=== PATIENT | male | born 1965 | race Two or more races ===

== ENCOUNTER 2024-07-20 22:14 | Emergency (ER) | payer MEDICAID, SELFPAY ==
[2024-07-20 22:43] VITALS: BP 157/89; PULSE 87; RESP 20; TEMP 36.8; O2SAT 99
--- NOTE | 2024-07-20 22:59 | PD.EDRME ---
Rapid Medical Screening Exam RME Arrival date/time: 07/20/24 22:14 59 year old c/o of urinary frequency and back pain. I have greeted and performed a focused initial assessment of this patient. A comprehensive ED assessment and evaluation of the patient, analysis of all test results, and completion of the medical decision making process will be conducted by additional ED providers. Chief Complaint: Urogenital-Male Time Seen by Provider: 07/20/24 22:17 Vital signs: Vital Signs Temperature 98.3 F 07/20/24 22:43 Pulse Rate 87 07/20/24 22:43 Respiratory Rate 20 07/20/24 22:43 Blood Pressure 157/89 H 07/20/24 22:43 Pulse Oximetry (%) 99 07/20/24 22:43 Oxygen Delivery Method Room Air 07/20/24 22:43
[2024-07-20 23:05] LABS: Collection Type, Urine Voided; Squamous Epithelial Cell,Urine 0 /hpf (0-5)
[2024-07-20 23:08] LABS: Basophils # (Auto) 0.1 Thou/mm3 (0.0-0.2); Basophils % (Auto) 0 % (0-2.5); Eosinophils # (Auto) 0.1 Thou/mm3 (0.0-0.5); Eosinophils % (Auto) 0 % (0-10); Hematocrit 44.5 % (41.0-53.0); Hemoglobin 15.3 g/dL (13.5-16.0); Immature Granulocytes % (Auto) 0 % (0-0); Immature Granulocytes Auto 0.08 Thou/mm3 (0.00-0.00); Lymphocytes # (Auto) 3.1 Thou/mm3 (1.0-4.8); Lymphocytes % (Auto) 16 % (10-50); Mean Corpuscular HGB Conc 34.4 g/dl (31.0-37.0); Mean Corpuscular Hemoglobin 30.5 pg (25.0-35.0); Mean Corpuscular Volume 89 fL (80-100); Monocytes # (Auto) 1.3 Thou/mm3 (0.0-0.8); Monocytes % (Auto) 6 % (0-12); Neutrophils # (Auto) 15.5 Thou/mm3 (1.8-7.7); Neutrophils % (Auto) 77 % (37-80); Nucleated Red Blood Cell % 0 /100 WBC (0); Platelet Count 208 Thou/mm3 (140-440); RDW Standard Deviation 41.4 fL (35.1-43.9); Red Blood Count 5.01 Miln/mm3 (4.50-5.90); White Blood Count 20.1 Thou/mm3 (3.8-10.6)
[2024-07-20 23:15] LABS: Bilirubin,Urine Negative (Negative); Blood,Urine 3+ (Negative); Glucose, Urine 4+ (Negative); Ketones,Urine Trace (Negative); Leukocyte Esterase,Urine Positive (Negative); Nitrite,Urine Negative (Negative); Protein,Urine 2+ (Neg - Trace); RBC,Urine 1708 /hpf (0-3); Specific Gravity,Urine 1.023 (1.001-1.035); Urobilinogen,Urine Negative mg/dL (0.0-1.0); WBC,Urine 1573 /hpf (0-5)
[2024-07-20 23:16] LABS: Clarity,Urine Turbid (Clear/Hazy); Color,Urine Yellow (Lt Yel-Yel)
[2024-07-20 23:28] LABS: Alanine Aminotransferase 20 U/L (10-49); Albumin, Serum 4.9 gm/dL (3.5-5.0); Albumin/Globulin Ratio 1.8 (1.2-2.2); Alkaline Phosphatase 69 U/L (46-116); Anion Gap 6 (7-16); Aspartate Amino Transferase 11 U/L (0-34); BUN/Creatinine Ratio 12 Ratio (12-20); Bilirubin,Total 0.4 mg/dL (0.3-1.2); Blood Urea Nitrogen 12 mg/dL (9-23); Calcium 9.7 mg/dL (8.3-10.6); Calcium (Corrected) 9.7 mg/dL (8.5-10.1); Carbon Dioxide 28.6 mMol/L (20.0-31.0); Chloride 103 mMol/L (98-107); Globulin 2.7 gm/dL (2.3-3.5); Glucose 227 mg/dL (74-106); Osmolality,Calculated 282 (275-295); Potassium 3.8 mMol/L (3.4-5.1); Sodium 138 mMol/L (136-145); Total Protein 7.6 gm/dL (5.7-8.2); eGFR > 60 See Note
[2024-07-20 23:40] LABS: Lactate (Lactic Acid) 1.1 mMol/L (0.4-2.0)
[2024-07-21] VITALS: BP 157/94; PULSE 78; RESP 18; TEMP 36.7; O2SAT 97
[2024-07-21 00:06] LABS: Procalcitonin 0.11 ng/ml (0.0-0.49)
[2024-07-21] MEDS: SODIUM CHLORIDE 0.9% 1000 ML 1,000 ML 999 ML IV (00:13)
--- NOTE | 2024-07-21 00:28 | EDNOTE_ITS ---
ED Male Genitalurinary RME/HPI General Chief complaint: Urogenital-Male Stated complaint: FREQUENT URINATION, MIGHT HAVE INFECTION Time Seen by Provider: 07/20/24 22:17 Source: patient Arrival date/time: 07/20/24 22:14 Mode of arrival: ambulatory Limitations: no limitations RME / HPI RME / HPI Narrative: 07/20/24 22:14 59 year old c/o of urinary frequency and back pain. I have greeted and performed a focused initial assessment of this patient. A comprehensive ED assessment and evaluation of the patient, analysis of all test results, and completion of the medical decision making process will be conducted by additional ED providers. Dr. Gotti?s Main ED Evaluation: This is a 59-year-old male presenting to the emergency department with complaints of urinary retention. The patient reports increased urinary frequency and urgency but minimal output. Additionally, he notes associated constipation. He mentions that he has experienced similar symptoms in the past, though he is unable to recall when. The patient was previously advised to use a catheter but declined, opting instead for a course of antibiotics, which led to symptom resolution. He attempted to see his PCP for further evaluation but was unable to secure an appointment, prompting him to seek care in the emergency department. The patient denies any known allergies. He reports a history of a gastric hernia. Related Data Home Medications ?Medication ?Instructions ?Recorded ?Confirmed paroxetine HCl 20 mg tablet (Paxil) 40 mg PO QAM #0 tabs 04/13/14 01/23/20 amoxicillin 500 mg capsule 500 mg PO BID 01/23/20 01/23/20 atorvastatin 20 mg tablet 20 mg PO QPM 01/23/20 01/23/20 cholecalciferol (vitamin D3) 25 25 mcg PO QDAY 01/23/20 01/23/20 mcg (1,000 unit) tablet (Vitamin D3) losartan 50 mg tablet (Cozaar) 50 mg PO BID 01/23/20 01/23/20 metformin 850 mg tablet 850 mg PO TID 01/23/20 01/23/20 omega 4-oyr-xrv-fish oil 1,000 mg 1 cap PO QDAY 01/23/20 01/23/20 (120 mg-180 mg) capsule (Fish Oil) pantoprazole 40 mg tablet,delayed 40 mg PO QDAY 01/23/20 01/23/20 release Previous Rx's ?Medication ?Instructions ?Recorded cefdinir 300 mg capsule 300 mg PO BID #14 caps 07/21/24 Allergies Allergy/AdvReac Type Severity Reaction Status Date / Time No Known Allergies Allergy Verified 07/20/24 22:14 Review of Systems Review of Systems Systems Reviewed: All systems reviewed, normal except as documented Past Medical History Past Medical History NEUROLOGIC: Negative Neurological Disorders or Seizures CARDIAC: Positive Cardiac Disorders, Hypercholesterolemia and Hypertension; Negative Congestive Heart Failure RESPIRATORY: Negative Chronic Obstructive Pulmonary Disease (COPD) or Asthma GASTROINTESTINAL: Positive Gastrointestinal Disorders, Hiatal Hernia and Gastroesophageal Reflux Disease GENITOURINARY: Positive Genitourinary Disorders and Benign Prostatic Hyperplasia; Negative Renal Disease MUSCULOSKELETAL: Negative Musculoskeletal Disorders ENDOCRINE: Positive Endocrine Disorders and Diabetes Mellitus Type 2; Negative Diabetes Mellitus Type 1 HEMATOLOGIC: Negative Blood Disorders or Sickle Cell Disease PSYCHO/SOCIAL: Positive Anxiety OTHER HISTORY: Negative Blood Transfusions, Chicken Pox, Measles, Mumps, Rubella ([place] Measles) or Cancer Family History FAMILY HISTORY: Positive Family Cardiac Disorders (both parents-HTN) Social History SMOKING STATUS: Current every day smoker ED Exam Narrative Physical exam: GENERAL APPEARANCE: AxOx4, generally well-appearing, no acute distress. HEENT: NC, AT. MMM. EOMI, clear conjunctiva, oropharynx clear. NECK: Supple without lymphadenopathy. No stiffness or restricted ROM. HEART: Normal rate and regular rhythm, normal S1/S1, no m/r/g LUNGS: CTAB, moving air well. No crackles or wheezes are heard. ABDOMEN: Soft, nontender, nondistended with good bowel sounds heard. BACK: No midline C/T/L spine pain or deformity, No CVAT, no obvious deformity. EXTREMITIES: Without cyanosis, clubbing or edema. MUSCULOSKELETAL: FROM of all major joints, no chest tenderness. NEUROLOGICAL: Grossly nonfocal. Alert and oriented, moving all 4 extremities. CN not formally tested but appear grossly intact. Observed to ambulate with normal gait. Skin: Warm and dry without any rash. General Limitations: Present no limitations Course Quality Measures none Orders Category Date Time Status CT Screening NOW Care 07/20/24 23:18 Completed IV [Insert IV] STAT Care 07/20/24 23:18 Completed Blood Culture (Lab) Stat Lab 07/20/24 23:28 Received CBC Stat Lab 07/20/24 22:59 Completed CMP [Comprehensive Metabolic Panel] Stat Lab 07/20/24 22:59 Completed Lactic Acid [Lactate (Lactic Acid)] Stat Lab 07/20/24 23:26 Completed Procalcitonin Stat Lab 07/20/24 23:26 Completed UA [Urinalysis] Stat Lab 07/20/24 22:56 Completed Urine Culture Stat Lab 07/20/24 22:56 Received Piper/Tazo Inj [Zosyn Inj] 3.375 gm Med 07/20/24 23:19 Discontinued Sodium Chloride 0.9% (P) [Ns 0.9% (P)] 50 ml IV X1 Sodium Chloride 0.9% 1000 ml [Ns] 1,000 ml Med 07/20/24 23:18 Discontinued IV 999 mls/hr Vital Signs Vital signs: Vital Signs Temperature 98.3 F 07/20/24 22:43 Pulse Rate 87 07/20/24 22:43 Respiratory Rate 20 07/20/24 22:43 Blood Pressure 157/89 H 07/20/24 22:43 Pulse Oximetry (%) 99 07/20/24 22:43 Oxygen Delivery Method Room Air 07/20/24 22:43 Oxygen saturation 99% on room air, patient is not hypoxic Urogenital - Male MDM Narrative MDM Narrative:: Mr. Gordillo is a clinically well-appearing gentleman who presents to the emergency department with subjective symptoms consistent with a UTI. He does not appear to have symptoms of pyelonephritis without flank pain or nausea or vomiting. Exam is otherwise benign and vital signs are stable. Laboratory testing was sent via the E process which significant for a leukocytosis at 20,000 and and initial urinalysis suggestive of UTI. Given he is also symptomatic, has a histo ry of diabetes, we will initiate antibiotic treatment. Is clinically well- appearing and is appropriate for outpatient treatment with oral antibiotics. He does possibly have some mild bacteremia with white count 20,000 we will err towards longer treatment for 7 days. I have spoken with the patient and discussed today?s findings, in addition to providing specific details for the plan of care. Questions are answered and there is an agreement with the plan. Re-assessment at the time of disposition demonstrates that the patient is in no acute distress. The patient has remained stable throughout the entire ED visit and is without objective evidence for acute process requiring urgent intervention or hospitalization. The patient is stable for discharge; counseling is provided and documented as above, discussed symptomatic treatment and specific conditions for return. Scribe Attestation: I, Radha Leggett, am scribing for and in the presence of Dr. Gotti. Provider Notation: Although this document has been carefully reviewed, there may still be some phonetic and other typographical errors. These errors are purely grammatical due to imperfections in the software program and should not be construed in any way to compromise the substance of the patient's medical care during this visit. Patient data External records reviewed:: [facility] previous records Clinical information provided by:: patient Social determinants that could affect healthcare access:: none Patient has the following chronic illnesses:: Refer to [facility] How is presenting disease/condition affected by chronic disease/condition?: no chronic disease Evaluation data The following diagnostics were reviewed and interpreted by me:: lab results Lab and/or radiology exams considered but not ordered:: None Interpretation Summary: See narrative Medications / Prescriptions Medications or Prescriptions considered but not ordered:: None Medication administrations:: Medication Administration History Discontinued Medications Sodium Chloride (Ns) 1,000 mls @ 999 mls/hr IV .Q1H1M ONE Stop: 07/21/24 00:18 Last Infusion: 07/21/24 02:05 Dose: Infused Documented By: Admin: 07/21/24 00:13 Dose: 999 mls/hr Documented By: EF Piperacillin Sod/Tazobactam (Sod 3.375 gm/ Sodium Chloride) 50 mls @ 100 mls/hr IV X1 ONE Stop: 07/20/24 23:48 Last Admin: 07/21/24 00:14 Dose: Not Given Documented By: RC Non-Admin Reason: Cancelled by Provider As above Consultations Consultation(s) initiated? (list below): No Diagnosis Urogenital Male Differential Diagnosis: other (cystitis, pyelonephritis , UTI, prostatitis) Most likely diagnosis given after review of the tests above:: Urinary tract infection Admission Indicated Admission indicated?: not indicated Admission Request Was there a request for admission?: No Disposition Plan Disposition Plan: Discharge Discharge Attestation Discharge Attestation: The patient and all family members were given an opportunity to ask questions and understood the discharge instructions. Discharge instructions specifically effects, indications for sooner follow up or return to the emergency department, and the expected course of current diagnosis. Patient condition: Stable Discharge Plan Plan Patient Disposition: HOME (Self Care) Prescriptions/Referrals Prescriptions/Med Rec: New cefdinir 300 mg capsule 300 mg PO BID Qty: 14 0RF No Action paroxetine HCl [Paxil] 20 MG tablet 40 mg PO QAM Qty: 0 losartan [Cozaar] 50 mg Tablet 50 mg PO BID amoxicillin 500 mg Capsule 500 mg PO BID atorvastatin 20 mg Tablet 20 mg PO QPM metformin 850 mg Tablet 850 mg PO TID pantoprazole 40 mg Tablet,Delayed Release (Dr/Ec) 40 mg PO QDAY cholecalciferol (vitamin D3) [Vitamin D3] 25 mcg (1,000 unit) Tablet 25 mcg PO QDAY omega 5-cgn-ziy-fish oil [Fish Oil] 1,000 mg (120 mg-180 mg) Capsule 1 cap PO QDAY Referrals: Baldo Gallagher MD [Primary Care Provider] - In 1 week Problem List Clinical Impression: Urinary tract infection Patient/Caregiver Discharge Instructions Education Materials: ED Bladder Infection, Male (Adult) Additional Instructions: Titus un seguimiento con marrero m?dico de atenci?n primaria en 3 a 5 d?as para volver a controlarlo. Puede regresar al departamento de emergencias antes si los s?ntomas empeoran o si nota alg?n problema nuevo y preocupante. Print Language: French Stand Alone Forms: Mery Award Info., Patient Portal Info Letter
[2024-07-21 02:06] VITALS: BP 110/76; PULSE 78; RESP 16; TEMP 37.8; O2SAT 98
== END 2024-07-21 02:17 | disposition home or self-care (01) ==
PROVIDERS: Physician Assistant; Emergency Provider Emergency Medicine; PCP Family Medicine
DX: N39.0 Urinary tract infection, site not specified (principal); K59.00 Constipation, unspecified
CPT/HCPCS: 36415; 80053; 81001; 83605; 84145; 85025; 87040; 87077; 87086; 87186; 96360; 96361; 99285; J7030

== ENCOUNTER 2024-08-01 18:55 | Emergency (ER) | payer MEDICAID, SELFPAY ==
[2024-08-01 19:27] VITALS: BP 113/74; PULSE 108; RESP 18; TEMP 36.6; O2SAT 97; BMI 23.8
--- NOTE | 2024-08-01 19:36 | XR_ITS ---
Examination: CT abdomen and pelvis without contrast. Coronal 3-D reconstructions. Sagittal 2-D reconstructions. Date and time of exam:August 01, 20242004 hours INDICATIONS: Left-sided flank pain beginning one week ago CTDI: vol (mGy): 6.39 DLP: (mGycm): 338 Technique: Axial images of the abdomen have been obtained, 3 mm slice thickness Intravenous contrast material has not been administered. Low dose protocols were performed. One or more of the following dose reduction techniques were used; automated exposure control, adjustment of the mA and/or KV according to patient size, use of iterative reconstruction technique. Findings: Focal areas of airspace destruction in the lower lung zones No intrahepatic biliary tract dilatation Contracted gallbladder Spleen is not enlarged No pancreatic or adrenal mass No renal or ureteral calculi, no hydronephrosis Aorta normal size Normal appendix No bowel obstruction No diverticulitis Contracted urinary bladder with wall thickening Transverse posterior dimension 4.5 cm The osseous structures are intact IMPRESSION: No renal or ureteral calculi, no hydronephrosis Normal appendix No bladder mass or bladder calculi
--- NOTE | 2024-08-01 19:37 | PD.EDRME ---
Rapid Medical Screening Exam [facility] Arrival date/time: 08/01/24 18:55 59M with history of DM and HTN presents to ED with continued dysuria/hematuria and now flank pain. Patient was here recently for this and was discharged with Cefdinir. Patient's UC showed caldwell-sensitive E-coli. Chief Complaint: Urogenital-Male Vital signs: Vital Signs Temperature 97.8 F 08/01/24 19:27 Pulse Rate 108 H 08/01/24 19:27 Respiratory Rate 18 08/01/24 19:27 Blood Pressure 113/74 08/01/24 19:27 Pulse Oximetry (%) 97 08/01/24 19:27 Oxygen Delivery Method Room Air 08/01/24 19:27
[2024-08-01 19:54] LABS: Basophils # (Auto) 0.1 Thou/mm3 (0.0-0.2); Basophils % (Auto) 0 % (0-2.5); Eosinophils % (Auto) 0 % (0-10); Hematocrit 40.5 % (41.0-53.0); Immature Granulocytes % (Auto) 1 % (0-0); Immature Granulocytes Auto 0.11 Thou/mm3 (0.00-0.00); Lymphocytes # (Auto) 2.4 Thou/mm3 (1.0-4.8); Lymphocytes % (Auto) 10 % (10-50); Mean Corpuscular HGB Conc 34.6 g/dl (31.0-37.0); Mean Corpuscular Hemoglobin 30.7 pg (25.0-35.0); Mean Corpuscular Volume 89 fL (80-100); Monocytes # (Auto) 1.2 Thou/mm3 (0.0-0.8); Monocytes % (Auto) 5 % (0-12); Neutrophils # (Auto) 19.8 Thou/mm3 (1.8-7.7); Neutrophils % (Auto) 84 % (37-80); Nucleated Red Blood Cell % 0 /100 WBC (0); Platelet Count 292 Thou/mm3 (140-440); RDW Standard Deviation 42.3 fL (35.1-43.9); Red Blood Count 4.56 Miln/mm3 (4.50-5.90); White Blood Count 23.6 Thou/mm3 (3.8-10.6)
[2024-08-01 20:06] LABS: Collection Type, Urine Clean Catch
[2024-08-01 20:18] LABS: Alanine Aminotransferase 15 U/L (10-49); Albumin, Serum 4.7 gm/dL (3.5-5.0); Albumin/Globulin Ratio 1.6 (1.2-2.2); Alkaline Phosphatase 58 U/L (46-116); Anion Gap 8 (7-16); Aspartate Amino Transferase 14 U/L (0-34); BUN/Creatinine Ratio 13 Ratio (12-20); Bilirubin,Total 0.5 mg/dL (0.3-1.2); Blood Urea Nitrogen 12 mg/dL (9-23); Calcium 9.4 mg/dL (8.3-10.6); Calcium (Corrected) 9.4 mg/dL (8.5-10.1); Carbon Dioxide 26.2 mMol/L (20.0-31.0); Chloride 102 mMol/L (98-107); Creatinine (Component) 0.9 mg/dL (0.6-1.3); Estimated Creatinine Clearance 81.7 mL/min (>60); Globulin 2.9 gm/dL (2.3-3.5); Glucose 166 mg/dL (74-106); Lipase 32 U/L (12-53); Osmolality,Calculated 275 (275-295); Potassium 3.7 mMol/L (3.4-5.1); Sodium 136 mMol/L (136-145); Total Protein 7.6 gm/dL (5.7-8.2); eGFR > 60 See Note
[2024-08-01 20:26] LABS: Bilirubin,Urine Negative (Negative); Blood,Urine 1+ (Negative); Clarity,Urine Turbid (Clear/Hazy); Color,Urine Yellow (Lt Yel-Yel); Glucose, Urine Negative (Negative); Ketones,Urine Trace (Negative); Leukocyte Esterase,Urine Positive (Negative); Nitrite,Urine Negative (Negative); Protein,Urine 1+ (Neg - Trace); RBC,Urine 22 /hpf (0-3); Specific Gravity,Urine 1.028 (1.001-1.035); Squamous Epithelial Cell,Urine 1 /hpf (0-5); WBC,Urine 406 /hpf (0-5)
--- NOTE | 2024-08-01 21:14 | PD.EDMALE ---
ED Male Genitalurinary RME/HPI General Chief complaint: Urogenital-Male Stated complaint: UTI SYMPTOMS X 1W WITH LEFT FLANK PAIN Time Seen by Provider: 08/01/24 21:06 Arrival date/time: 08/01/24 18:55 RME / HPI RME / HPI Narrative: 59M with history of DM and HTN presents to ED with continued dysuria/hematuria and now flank pain. Patient was here recently for this and was discharged with Cefdinir. Patient's UC showed caldwell-sensitive E-coli. Patient continue to have symptoms of dysuria. Associated with frequency. Also complained of constipation. Denies any other complaints no medications taken prior to arrival. Related Data Home Medications ?Medication ?Instructions ?Recorded ?Confirmed paroxetine HCl 20 mg tablet (Paxil) 40 mg PO QAM #0 tabs 04/13/14 01/23/20 amoxicillin 500 mg capsule 500 mg PO BID 01/23/20 01/23/20 atorvastatin 20 mg tablet 20 mg PO QPM 01/23/20 01/23/20 cholecalciferol (vitamin D3) 25 25 mcg PO QDAY 01/23/20 01/23/20 mcg (1,000 unit) tablet (Vitamin D3) losartan 50 mg tablet (Cozaar) 50 mg PO BID 01/23/20 01/23/20 metformin 850 mg tablet 850 mg PO TID 01/23/20 01/23/20 omega 1-krn-lbt-fish oil 1,000 mg 1 cap PO QDAY 01/23/20 01/23/20 (120 mg-180 mg) capsule (Fish Oil) pantoprazole 40 mg tablet,delayed 40 mg PO QDAY 01/23/20 01/23/20 release Previous Rx's ?Medication ?Instructions ?Recorded cefdinir 300 mg capsule 300 mg PO BID #14 caps 07/21/24 ciprofloxacin HCl 500 mg tablet 500 mg PO BID #14 tabs 08/01/24 (Cipro) Allergies Allergy/AdvReac Type Severity Reaction Status Date / Time No Known Allergies Allergy Verified 08/01/24 18:57 Review of Systems Review of Systems Narrative Review of Systems: Review of system reviewed and within normal limits except mentioned in HPI ED Exam Narrative Physical exam: VITAL SIGNS: Reviewed. GENERAL APPEARANCE: Alert and interactive, follows commands, no acute distress, HEAD AND FACE: Non-traumatic. ENT: PERRL, pink conjunctivitis, eyelid no trauma, Mucous membrane moist. NECK: Supple, nontender, no nuchal rigidity. CHEST: No tenderness, no crepitus, no paradoxical movement, no retractions. LUNGS: Clear, well ventilated, symmetric, no rales, no wheezing, no ronchi, no stridor, good breath sounds bilaterally. HEART: Regular rate, regular rhythm, no murmur, no gallops. ABDOMEN: Soft, positive bowel sounds, nondistended, no guarding, nontender, no rebound, no masses, RECTAL: Deferred. GENITAL: Deferred. NEUROLOGICAL: Gross motor function intact sensory function intact, Appropriate for age. MUSCULOSKELETAL: low back nontender, full range of motion. EXTREMITIES: Nontender, full range of motion. SKIN: Color pink, dry, no rash, no lacerations, no abrasions, no contusions. LYMPHATICS: Deferred. Course Quality Measures none Orders Category Date Time Status CT abdomen pelvis wo con Stat Exams 08/01/24 19:36 Completed CBC Stat Lab 08/01/24 19:45 Completed CMP [Comprehensive Metabolic Panel] Stat Lab 08/01/24 19:45 Completed Lipase Stat Lab 08/01/24 19:45 Completed UA [Urinalysis] Stat Lab 08/01/24 19:50 Completed Urine Culture Stat Lab 08/01/24 19:50 Received cefTRIAXone [Rocephin] 1,000 mg Med 08/01/24 21:14 Discontinued Lidocaine 1% 20 ml [Xylocaine 1% 20 ML] 2.1 ml IM X1 Vital Signs Vital signs: Vital Signs Temperature 97.8 F 08/01/24 19:27 Pulse Rate 108 H 08/01/24 19:27 Respiratory Rate 18 08/01/24 19:27 Blood Pressure 113/74 08/01/24 19:27 Pulse Oximetry (%) 97 08/01/24 19:27 Oxygen Delivery Method Room Air 08/01/24 19:27 Urogenital - Male MDM Narrative MDM Narrative:: 59M with history of DM and HTN presents to ED with continued dysuria/hematuria and now flank pain. Patient was here recently for this and was discharged with Cefdinir. Patient's UC showed caldwell-sensitive E-coli. Patient continue to have symptoms of dysuria. Associated with frequency. Also complained of constipation. Denies any other complaints no medications taken prior to arrival. Laboratory workup is significant for leukocytosis of 23.6 urinalysis positive for UTI. CT scan of the abdomen pelvis came back unremarkable. Results discussed with the patient. Currently patient is not having any fever, patient is not septic. Patient received ceftriaxone IM. Patient will be sent home on Cipro. Patient data External records reviewed:: None Clinical information provided by:: patient Social determinants that could affect healthcare access:: none Patient has the following chronic illnesses:: Diabetes mellitus How is presenting disease/condition affected by chronic disease/condition?: exacerbated by Evaluation data The following diagnostics were reviewed and interpreted by me:: lab results and radiology exam(s) Lab and/or radiology exams considered but not ordered:: None Interpretation Summary: See results in [facility] Medications / Prescriptions Medications or Prescriptions considered but not ordered:: None Medication administrations:: Medication Administration History Discontinued Medications Ceftriaxone Sodium 1,000 mg/ (Lidocaine HCl 2.1 ml) 0 mg IM X1 ONE Stop: 08/01/24 21:15 Ceftriaxone IM Consultations Consultation(s) initiated? (list below): No Diagnosis Urogenital Male Differential Diagnosis: urinary tract infection, urethritis and prostatitis Most likely diagnosis given after review of the tests above:: Urinary tract infection, constipation Admission Indicated Admission indicated?: not indicated Explain why admission is indicated or not indicated:: Stable for discharge Admission Request Was there a request for admission?: No Disposition Plan Disposition Plan: Discharge Discharge Attestation Discharge Attestation: The patient and all family members were given an opportunity to ask questions and understood the discharge instructions. Discharge instructions specifically effects, indications for sooner follow up or return to the emergency department, and the expected course of current diagnosis. Patient condition: Stable Discharge Plan Plan Patient Disposition: HOME (Self Care) Prescriptions/Referrals Prescriptions/Med Rec: New ciprofloxacin HCl [Cipro] 500 mg tablet 500 mg PO BID Qty: 14 0RF No Action paroxetine HCl [Paxil] 20 MG tablet 40 mg PO QAM Qty: 0 losartan [Cozaar] 50 mg Tablet 50 mg PO BID amoxicillin 500 mg Capsule 500 mg PO BID atorvastatin 20 mg Tablet 20 mg PO QPM metformin 850 mg Tablet 850 mg PO TID pantoprazole 40 mg Tablet,Delayed Release (Dr/Ec) 40 mg PO QDAY cholecalciferol (vitamin D3) [Vitamin D3] 25 mcg (1,000 unit) Tablet 25 mcg PO QDAY omega 5-ksy-ole-fish oil [Fish Oil] 1,000 mg (120 mg-180 mg) Capsule 1 cap PO QDAY cefdinir 300 mg capsule 300 mg PO BID Qty: 14 0RF Referrals: Baldo Gallagher MD [Primary Care Provider] - In 1 week Problem List Clinical Impression: Urinary tract infection Patient/Caregiver Discharge Instructions Discharge Activity: activity as tolerated Education Materials: Understanding Urinary Tract ... Additional Instructions: Thank you for the opportunity for serving you today. You are stable for discharged . You are advised to: Follow-up with your PCP in 1 to 2 days Return to ED for worsening of symptoms Increase oral fluids Take medication as prescribed Print Language: Belizean Stand Alone Forms: Mery Award Info., Patient Portal Info Letter PA/CARIE Supervising Physician PA/CARIE Supervising Physician: MD Avila
[2024-08-01] MEDS: cefTRIAXone 1,000 MG, LIDOCAINE 1% 20 ML 2.1 ML IM (21:30)
== END 2024-08-01 21:37 | disposition home or self-care (01) ==
PROVIDERS: Physician Assistant; Emergency Provider Emergency Medicine; PCP Family Medicine
DX: N39.0 Urinary tract infection, site not specified (principal); B96.20 Unspecified Escherichia coli [E. coli] as the cause of diseases classified elsewhere; R10.9 Unspecified abdominal pain; K59.00 Constipation, unspecified
CPT/HCPCS: 36415; 74176; 80053; 81001; 83690; 85025; 87086; 96372; 99284; J0696; J3490

== ENCOUNTER 2024-08-04 01:52 | Emergency (ER) | payer MEDICAID, SELFPAY ==
[2024-08-04 01:53] VITALS: BMI 26.0
[2024-08-04 02:22] VITALS: BP 115/76; PULSE 116; RESP 18; TEMP 36.7; O2SAT 97
--- NOTE | 2024-08-04 03:11 | PD.EDMALE ---
ED Male Genitalurinary RME/HPI General Chief complaint: Urogenital-Male Stated complaint: difficulty urinating Time Seen by Provider: 08/04/24 02:44 Arrival date/time: 08/04/24 01:52 59M with history of DM and HTN presents to ED with continued but improved dysuria/hematuria, but today had 5 hours of urinary retention. Patient was here twice recently for this with diagnosis of UTI with normal CT. Patient finished a course of Cefdinir and is currently on Levofloxacin. Patient's UC showed caldwell-sensitive E-coli. Patient also mentioned that he's been constipated. Patient was given Flomax by PCP. Limitations: no limitations Related Data Home Medications ?Medication ?Instructions ?Recorded ?Confirmed paroxetine HCl 20 mg tablet (Paxil) 40 mg PO QAM #0 tabs 04/13/14 01/23/20 amoxicillin 500 mg capsule 500 mg PO BID 01/23/20 01/23/20 atorvastatin 20 mg tablet 20 mg PO QPM 01/23/20 01/23/20 cholecalciferol (vitamin D3) 25 25 mcg PO QDAY 01/23/20 01/23/20 mcg (1,000 unit) tablet (Vitamin D3) losartan 50 mg tablet (Cozaar) 50 mg PO BID 01/23/20 01/23/20 metformin 850 mg tablet 850 mg PO TID 01/23/20 01/23/20 omega 3-jhj-oms-fish oil 1,000 mg 1 cap PO QDAY 01/23/20 01/23/20 (120 mg-180 mg) capsule (Fish Oil) pantoprazole 40 mg tablet,delayed 40 mg PO QDAY 01/23/20 01/23/20 release Previous Rx's ?Medication ?Instructions ?Recorded cefdinir 300 mg capsule 300 mg PO BID #14 caps 07/21/24 ciprofloxacin HCl 500 mg tablet 500 mg PO BID #14 tabs 08/01/24 (Cipro) Allergies Allergy/AdvReac Type Severity Reaction Status Date / Time No Known Allergies Allergy Verified 08/01/24 18:57 Review of Systems Review of Systems Systems Reviewed: All systems reviewed, normal except as documented Constitutional Constitutional: Reports system reviewed and no additional complaints, except as documented, Denies fever(s) and Denies headache(s) ENT Ears, Nose, Mouth, and Throat: Denies disequilibrium and Denies headache(s) Cardiovascular Cardiovascular: Reports system reviewed and no additional complaints, except as documented, Denies chest pain and Denies dyspnea Respiratory Respiratory: Reports system reviewed and no additional complaints, except as documented, Denies cough and Denies dyspnea Gastrointestinal Gastrointestinal: Reports system reviewed and no additional complaints, except as documented, Reports as per HPI, Denies abdominal pain, Reports constipation, Denies nausea and Denies vomiting Genitourinary Genitourinary: Reports as per HPI, Reports difficulty urinating, Reports hematuria and Reports painful ejaculations Neurologic Neurologic: Reports system reviewed and no additional complaints, except as documented, Denies confusion, Denies disequilibrium and Denies headache(s) Psychiatric Psychiatric: Denies confusion Past Medical History Past Medical History NEUROLOGIC: Negative Neurological Disorders or Seizures CARDIAC: Positive Cardiac Disorders, Hypercholesterolemia and Hypertension; Negative Congestive Heart Failure RESPIRATORY: Negative Chronic Obstructive Pulmonary Disease (COPD) or Asthma GASTROINTESTINAL: Positive Gastrointestinal Disorders, Hiatal Hernia and Gastroesophageal Reflux Disease GENITOURINARY: Positive Genitourinary Disorders and Benign Prostatic Hyperplasia; Negative Renal Disease MUSCULOSKELETAL: Negative Musculoskeletal Disorders ENDOCRINE: Positive Endocrine Disorders and Diabetes Mellitus Type 2; Negative Diabetes Mellitus Type 1 HEMATOLOGIC: Negative Blood Disorders or Sickle Cell Disease PSYCHO/SOCIAL: Positive Anxiety OTHER HISTORY: Negative Blood Transfusions, Chicken Pox, Measles, Mumps, Rubella (Wol[place] Measles) or Cancer Family History FAMILY HISTORY: Positive Family Cardiac Disorders (both parents-HTN) Social History SMOKING STATUS: Heavy (> 1 pack/day) ED Exam General Limitations: Present no limitations General appearance: Present alert and in distress (resolved) Head Head exam: Present atraumatic Eye Eye exam: Present normal appearance, PERRL and EOMI ENT ENT exam: Present normal exam, normal oropharynx and mucous membranes moist Neck Neck exam: Present normal inspection, full ROM and trachea midline Chest Chest inspection: Present normal inspection and symmetric chest wall rise Respiratory Respiratory exam: Present normal lung sounds bilaterally Cardiovascular Cardiovascular exam: Present regular rate, normal rhythm and normal heart sounds Abdominal Exam Abdominal exam: Present soft and normal bowel sounds Extremities Exam Extremities exam: Present normal inspection and full ROM Back Exam Back exam: Present normal inspection and full ROM Neurological Exam Neurological exam: Present alert, oriented X3 and CN II-XII intact Psychiatric Psychiatric exam: Present normal affect and normal mood Skin Skin exam: Present warm, dry, intact and normal color Course Quality Measures none Orders Category Date Time Status Catheter [Urinary Catheter] Care 08/04/24 02:46 Active Hong to Leg Bag Routine Care 08/04/24 02:46 Ordered Lactulose Syrup [Enulose Syrup] Med 08/04/24 03:03 Once 20 gm PO X1 ONE cefTRIAXone [Rocephin] 1,000 mg Med 08/04/24 02:45 Discontinued Lidocaine 1% 20 ml [Xylocaine 1% 20 ML] 2.1 ml IM X1 Vital Signs Vital signs: Vital Signs Temperature 98.1 F 08/04/24 02:22 Pulse Rate 116 H 08/04/24 02:22 Respiratory Rate 18 08/04/24 02:22 Blood Pressure 115/76 08/04/24 02:22 Pulse Oximetry (%) 97 08/04/24 02:22 Oxygen Delivery Method Room Air 08/04/24 02:22 O2 at 97% on RA and WNLs Urogenital - Male MDM Narrative MDM Narrative:: 59M with history of DM and HTN presents to ED with continued but improved dysuria/hematuria, but today had 5 hours of urinary retention. Patient was here twice recently for this with diagnosis of UTI with normal CT. Patient finished a course of Cefdinir and is currently on Levofloxacin. Patient's UC showed caldwell-sensitive E-coli. Patient also mentioned that he's been constipated. Patient was given Flomax by PCP. Physical exam reveals pelvic tenderness/fullness. Patient is afebrile, alert, but in distress. Hong put in, which provided complete relief. Combo of UTI, prostatomegaly, and constipation likely contributing to urinary retention. Patient discharged with Hong and dormitory counselor to follow-up with PCP for void trial. Patient data External records reviewed:: [facility] previous records Clinical information provided by:: patient Social determinants that could affect healthcare access:: none Patient has the following chronic illnesses:: DM and HTN How is presenting disease/condition affected by chronic disease/condition?: exacerbated by Evaluation data The following diagnostics were reviewed and interpreted by me:: other (specify) (none) Lab and/or radiology exams considered but not ordered:: not ordered Interpretation Summary: n/a Medications / Prescriptions Medications or Prescriptions considered but not ordered:: ordered Medication administrations:: Medication Administration History Lactulose (Lactulose Syrup 20 Gm/30 Ml Udc) 20 gm PO X1 ONE; Protocol Stop: 08/04/24 03:04 Discontinued Medications Ceftriaxone Sodium 1,000 mg/ (Lidocaine HCl 2.1 ml) 0 mg IM X1 ONE Stop: 08/04/24 02:46 above Consultations Consultation(s) initiated? (list below): No Diagnosis Urogenital Male Differential Diagnosis: urinary tract infection, priapism, urethritis, epididymitis, genital herpes simplex, prostatitis, acute retention of urine, inguinal hernia and other (constipation) Most likely diagnosis given after review of the tests above:: acute urinary retention and constipation Admission Indicated Admission indicated?: not indicated Admission Request Was there a request for admission?: No Disposition Plan Disposition Plan: Discharge Discharge Attestation Discharge Attestation: The patient and all family members were given an opportunity to ask questions and understood the discharge instructions. Discharge instructions specifically effects, indications for sooner follow up or return to the emergency department, and the expected course of current diagnosis. Patient condition: Stable Discharge Plan Plan Patient Disposition: HOME (Self Care) Disposition Comment: Stable Prescriptions/Referrals Prescriptions/Med Rec: No Action paroxetine HCl [Paxil] 20 MG tablet 40 mg PO QAM Qty: 0 losartan [Cozaar] 50 mg Tablet 50 mg PO BID amoxicillin 500 mg Capsule 500 mg PO BID atorvastatin 20 mg Tablet 20 mg PO QPM metformin 850 mg Tablet 850 mg PO TID pantoprazole 40 mg Tablet,Delayed Release (Dr/Ec) 40 mg PO QDAY cholecalciferol (vitamin D3) [Vitamin D3] 25 mcg (1,000 unit) Tablet 25 mcg PO QDAY omega 4-rku-vjv-fish oil [Fish Oil] 1,000 mg (120 mg-180 mg) Capsule 1 cap PO QDAY ciprofloxacin HCl [Cipro] 500 mg tablet 500 mg PO BID Qty: 14 0RF cefdinir 300 mg capsule 300 mg PO BID Qty: 14 0RF Problem List Clinical Impression: Acute retention of urine, Constipation Patient/Caregiver Discharge Instructions Education Materials: ED Constipation (Adult), ED Urinary Retention, Male Additional Instructions: Please follow-up with PCP within 24-48 hours and return immediately if symptoms worsen. Make sure to finish all ABX. Follow-up with PCP for void trial. Continue taking Flomax. Print Language: Estonian Stand Alone Forms: Patient Portal Info Letter PA/CARIE Supervising Physician PA/CARIE Supervising Physician: Dr. Rodriguez
[2024-08-04] MEDS: cefTRIAXone 1,000 MG, LIDOCAINE 1% 20 ML 2.1 ML IM (03:40)
[2024-08-04] MEDS: LACTULOSE SYRUP 20 GM/30 ML UDC PO (03:40)
== END 2024-08-04 03:54 | disposition home or self-care (01) ==
LOC: SERX 03:06
PROVIDERS: Emergency Provider Emergency Medicine; PCP Family Medicine
DX: R33.8 Other retention of urine (principal); K59.00 Constipation, unspecified; E11.9 Type 2 diabetes mellitus without complications; I10 Essential (primary) hypertension
CPT/HCPCS: 51702; 96372; 99283; J0696; J3490; A9270

== ENCOUNTER 2024-08-13 17:45 | Emergency (ER) | payer MEDICAID, SELFPAY ==
[2024-08-13 18:25] VITALS: BP 122/73; PULSE 98; RESP 18; TEMP 36.6; O2SAT 96; BMI 22.5
--- NOTE | 2024-08-13 18:31 | PD.EDMALE ---
ED Male Genitalurinary RME/HPI General Chief complaint: Urogenital-Male Stated complaint: CATHETER REMOVAL; PLACEMENT 11 DAYS AGO Time Seen by Provider: 08/13/24 18:29 Arrival date/time: 08/13/24 17:45 59M with history of DM and HTN presents to wanting Hong removed from last ED visit. Patient went to PCP but they did not do void trial. Patient no longer has dysuria. Limitations: no limitations Related Data Home Medications ?Medication ?Instructions ?Recorded ?Confirmed paroxetine HCl 20 mg tablet (Paxil) 40 mg PO QAM #0 tabs 04/13/14 01/23/20 amoxicillin 500 mg capsule 500 mg PO BID 01/23/20 01/23/20 atorvastatin 20 mg tablet 20 mg PO QPM 01/23/20 01/23/20 cholecalciferol (vitamin D3) 25 25 mcg PO QDAY 01/23/20 01/23/20 mcg (1,000 unit) tablet (Vitamin D3) losartan 50 mg tablet (Cozaar) 50 mg PO BID 01/23/20 01/23/20 metformin 850 mg tablet 850 mg PO TID 01/23/20 01/23/20 omega 3-zyu-gps-fish oil 1,000 mg 1 cap PO QDAY 01/23/20 01/23/20 (120 mg-180 mg) capsule (Fish Oil) pantoprazole 40 mg tablet,delayed 40 mg PO QDAY 01/23/20 01/23/20 release Previous Rx's ?Medication ?Instructions ?Recorded cefdinir 300 mg capsule 300 mg PO BID #14 caps 07/21/24 ciprofloxacin HCl 500 mg tablet 500 mg PO BID #14 tabs 08/01/24 (Cipro) Allergies Allergy/AdvReac Type Severity Reaction Status Date / Time No Known Allergies Allergy Verified 08/13/24 17:46 Review of Systems Review of Systems Systems Reviewed: All systems reviewed, normal except as documented Constitutional Constitutional: Reports system reviewed and no additional complaints, except as documented, Denies fever(s) and Denies headache(s) ENT Ears, Nose, Mouth, and Throat: Denies disequilibrium and Denies headache(s) Cardiovascular Cardiovascular: Reports system reviewed and no additional complaints, except as documented, Denies chest pain and Denies dyspnea Respiratory Respiratory: Reports system reviewed and no additional complaints, except as documented, Denies cough and Denies dyspnea Gastrointestinal Gastrointestinal: Reports system reviewed and no additional complaints, except as documented, Denies abdominal pain, Denies nausea and Denies vomiting Neurologic Neurologic: Reports system reviewed and no additional complaints, except as documented, Denies confusion, Denies disequilibrium and Denies headache(s) Psychiatric Psychiatric: Denies confusion Past Medical History Past Medical History NEUROLOGIC: Negative Neurological Disorders or Seizures CARDIAC: Positive Cardiac Disorders, Hypercholesterolemia and Hypertension; Negative Congestive Heart Failure RESPIRATORY: Negative Chronic Obstructive Pulmonary Disease (COPD) or Asthma GASTROINTESTINAL: Positive Gastrointestinal Disorders, Hiatal Hernia and Gastroesophageal Reflux Disease GENITOURINARY: Positive Genitourinary Disorders and Benign Prostatic Hyperplasia; Negative Renal Disease MUSCULOSKELETAL: Negative Musculoskeletal Disorders ENDOCRINE: Positive Endocrine Disorders and Diabetes Mellitus Type 2; Negative Diabetes Mellitus Type 1 HEMATOLOGIC: Negative Blood Disorders or Sickle Cell Disease PSYCHO/SOCIAL: Positive Anxiety OTHER HISTORY: Negative Blood Transfusions, Chicken Pox, Measles, Mumps, Rubella ([place] Measles) or Cancer Family History FAMILY HISTORY: Positive Family Cardiac Disorders (both parents-HTN) Social History SMOKING STATUS: Current every day smoker ED Exam General Limitations: Present no limitations General appearance: Present alert and in no apparent distress Head Head exam: Present atraumatic Eye Eye exam: Present normal appearance, PERRL and EOMI ENT ENT exam: Present normal exam, normal oropharynx and mucous membranes moist Neck Neck exam: Present normal inspection, full ROM and trachea midline Chest Chest inspection: Present normal inspection and symmetric chest wall rise Respiratory Respiratory exam: Present normal lung sounds bilaterally Cardiovascular Cardiovascular exam: Present regular rate, normal rhythm and normal heart sounds Abdominal Exam Abdominal exam: Present soft and normal bowel sounds Extremities Exam Extremities exam: Present normal inspection and full ROM Back Exam Back exam: Present normal inspection and full ROM Neurological Exam Neurological exam: Present alert, oriented X3 and CN II-XII intact Psychiatric Psychiatric exam: Present normal affect and normal mood Skin Skin exam: Present warm, dry, intact and normal color Course Quality Measures none Orders Category Date Time Status Hong [Urinary Catheter, Remove] ONCE Care 08/13/24 18:30 Active Vital Signs Vital signs: Vital Signs Temperature 98 F 08/13/24 18:25 Pulse Rate 98 08/13/24 18:25 Respiratory Rate 18 08/13/24 18:25 Blood Pressure 122/73 08/13/24 18:25 Pulse Oximetry (%) 96 08/13/24 18:25 Oxygen Delivery Method Room Air 08/13/24 18:25 O2 at 96% on RA and WNLs Urogenital - Male MDM Narrative MDM Narrative:: 59M with history of DM and HTN presents to wanting Hong removed from last ED visit. Patient went to PCP but they did not do void trial. Patient no longer has dysuria. Physical exam reveals no pelvic tenderness. Patient is afebrile, calm, and alert. Hong removed. Void trial passed. Patient data External records reviewed:: [facility] previous records Clinical information provided by:: patient Social determinants that could affect healthcare access:: none Patient has the following chronic illnesses:: DM and HTN How is presenting disease/condition affected by chronic disease/condition?: exacerbated by Evaluation data The following diagnostics were reviewed and interpreted by me:: other (specify) (none) Lab and/or radiology exams considered but not ordered:: not ordered Interpretation Summary: n/a Medications / Prescriptions Medications or Prescriptions considered but not ordered:: not ordered Medication administrations:: n/a Consultations Consultation(s) initiated? (list below): No Diagnosis Urogenital Male Differential Diagnosis: urinary tract infection, priapism, urethritis, epididymitis, genital herpes simplex, prostatitis, acute retention of urine, inguinal hernia and other (encounter for Hong removal) Most likely diagnosis given after review of the tests above:: encounter for Hong removal Admission Indicated Admission indicated?: not indicated Admission Request Was there a request for admission?: No Disposition Plan Disposition Plan: Discharge Discharge Attestation Discharge Attestation: The patient and all family members were given an opportunity to ask questions and understood the discharge instructions. Discharge instructions specifically effects, indications for sooner follow up or return to the emergency department, and the expected course of current diagnosis. Patient condition: Stable Discharge Plan Plan Patient Disposition: HOME (Self Care) Disposition Comment: STable Prescriptions/Referrals Prescriptions/Med Rec: No Action paroxetine HCl [Paxil] 20 MG tablet 40 mg PO QAM Qty: 0 losartan [Cozaar] 50 mg Tablet 50 mg PO BID amoxicillin 500 mg Capsule 500 mg PO BID atorvastatin 20 mg Tablet 20 mg PO QPM metformin 850 mg Tablet 850 mg PO TID pantoprazole 40 mg Tablet,Delayed Release (Dr/Ec) 40 mg PO QDAY cholecalciferol (vitamin D3) [Vitamin D3] 25 mcg (1,000 unit) Tablet 25 mcg PO QDAY omega 7-gna-hxh-fish oil [Fish Oil] 1,000 mg (120 mg-180 mg) Capsule 1 cap PO QDAY ciprofloxacin HCl [Cipro] 500 mg tablet 500 mg PO BID Qty: 14 0RF cefdinir 300 mg capsule 300 mg PO BID Qty: 14 0RF Referrals: Baldo Gallagher MD [Primary Care Provider] - In 1 week Problem List Clinical Impression: Encounter for Hong catheter removal Patient/Caregiver Discharge Instructions Additional Instructions: Please follow-up with PCP within 24-48 hours and return immediately if symptoms worsen. Print Language: Belarusian Stand Alone Forms: Patient Portal Info Letter PA/ASTHMA EDUCATOR Supervising Physician PA/ASTHMA EDUCATOR Supervising Physician: Dr. Patterson
== END 2024-08-13 20:26 | disposition home or self-care (01) ==
PROVIDERS: Emergency Provider Emergency Medicine; PCP Family Medicine
DX: Z46.6 Encounter for fitting and adjustment of urinary device (principal)
CPT/HCPCS: 99282